=== PATIENT | male | born 1990 | race Caucasian/White ===

== ENCOUNTER 2021-11-28 08:45 | Emergency (ER) | payer SELFPAY ==
[2021-11-28 08:53] VITALS: BP 166/107; PULSE 94; RESP 18; TEMP 36.7; O2SAT 98; BMI 29.5
--- NOTE | 2021-11-28 09:18 | ED_ITS ---
HPI - General Adult General: Chief complaint: General Medical Stated complaint: nightmares Time Seen by Provider: 11/28/21 09:02 Source: patient Mode of arrival: ambulatory Limitations: no limitations History of Present Illness: 31-year-old male presents to the ER today for night terrors. Patient reports this has been an ongoing issue. His is become concerned because it is happening every night. Patient reports he found his dad of natural causes several years ago and has been unable to sleep at night since. He reports he wakes up with images of his dad and finding him. He denies any thoughts of self-harm. Patient denies that he wakes up combative or that he has thoughts of harming anyone else. Patient has never seen a psychiatrist or primary care doctor about this. He does have trouble falling asleep at night because he knows this is going to occur. Review of Systems General: Reports: 10 or more systems reviewed and unremarkable except in HPI and below Physical Exam Const: COMMON NORMALS: no acute distress, average body habitus, patient oriented x3, healthy appearing, alert and well nourished HENMT: COMMON NORMALS: normocephalic, hearing grossly normal bilaterally, Normal external nose present and moist oral mucous membranes HEAD & SCALP: normocephalic NOSE: Normal external nose present Eye: COMMON NORMALS: conjunctivae normal CONJUNCTIVA: Yes conjunctivae normal Neck/C-Spine: COMMON NORMALS: full ROM and no lymphadenopathy Resp: COMMON NORMALS: normal respiratory effort, No retractions and clear to auscultation bilaterally AUSCULTATION: clear to auscultation bilaterally Cardio: COMMON NORMALS: regular rate, regular rhythm and No murmurs present (Cardio) RATE: regular rate RHYTHM: regular rhythm Extremity: COMMON NORMALS: normal to inspection and full ROM Neuro: COMMON NORMALS: patient oriented x3 SENSORIUM/ORIENTATION: Yes alert Psych: COMMON NORMALS: mental status grossly normal, Normal thought process present and cooperative THOUGHT PROCESS: Normal thought process present Skin: OTHER: Patient has a lots of small wounds that appear to be healing on his forearms. These all seem to be scabbed over. Course ED course: 31-year-old male presents to the ER today for night terrors and issues sleeping. This has been an ongoing issue since he found his dad of natural causes several years ago. Patient's is concerned for her safety however patient denies being combative. He wakes up screaming but has never been aggressive. He denies any thoughts of self-harm at this time. Patient does not have a PCP to follow-up with. Vital Signs: Vital signs: Vital Signs Temperature 98.1 F 11/28/21 08:53 Pulse Rate 94 11/28/21 08:53 Respiratory Rate 18 11/28/21 08:53 Blood Pressure 166/107 11/28/21 08:53 Pulse Oximetry 98 11/28/21 08:53 MDM - General Adult Medical Decision Making 31-year-old male presents to the ER today for night terrors and issues sleeping. This has been an ongoing issue since he found his dad of natural causes several years ago. Patient's is concerned for her safety however patient denies being combative. He wakes up screaming but has never been aggressive. He denies any thoughts of self-harm at this time. Patient does not have a PCP to follow-up with. We will place a referral to case management to have patient establish with a primary care doctor. I suspect patient has some PTSD from finding his father. We will try hydroxyzine at this time to see if it helps take the edge off and help patient sleep. I do not feel patient is a harm to himself or anyone else. Patient is comfortable with this plan. He will follow-up with PCP when contacted. Return to the ER with new or worsening symptoms. Critical Care Time Critical Care Time: Critical Care Time: No Discharge Plan Discharge Patient Disposition: Home Clinical Impression: Adult night terrors, Post traumatic stress disorder (PTSD) Condition: Stable Prescriptions: New hydroxyzine HCl 50 mg tablet 50 mg PO QID PRN (Reason: night terrors) Qty: 20 0RF Rx Instructions: take 30 minutes prior to bedtime Discharge Orders: Discharge ED (Routine); Ordered 11/28/21 Ordered By: Carol Kincaid Discharge Diet: Usual diet Discharge Activity: Resume usual activity Patient Instructions: Insomnia (ED), Opioid Safety Activity Restrictions/Additional Instructions: Take hydroxyzine as prescribed. Follow-up with PCP as discussed. We will place an order for someone to contact you to establish care. Return to the ER with new or worsening symptoms. Coding Level of Care Code ED Glass [employer] for Lawrence Cruz
--- NOTE | 2022-01-05 15:25 | DCPLANNER ---
late entry - patient case coordinator had message to speak with patient about getting established with a primary care physician. hedis manager was unable to speak with patient or leave a voicemail at this time.
== END 2021-11-28 09:28 | disposition home or self-care (01) ==
PROVIDERS: Emergency Provider Physician Assistant
DX: F51.4 Sleep terrors [night terrors] (principal); F43.10 Post-traumatic stress disorder, unspecified
CPT/HCPCS: 99283